=== PATIENT | female | born 1960 | race Caucasian/White ===

== ENCOUNTER 2017-01-15 00:20 | Emergency (ER) | payer BC ==
[~2017-01-15] VITALS: Ht 171.5 cm; Wt 85.7 kg
[~2017-01-15 00:20] MED LIST: NAPR1TAB9 PO; VENL150C PO
[2017-01-15 00:29] VITALS: BP 114/73; PULSE 78; TEMP 36.7; O2SAT 96; Ht 171.5 cm; Wt 85.7 kg
[2017-01-15] MEDS ORDERED: AMOX875T PO (00:53)
[2017-01-15] MEDS ORDERED: NORCO 5/325MG HOME PACK PO ONE (01:00)
[2017-01-15] MEDS ORDERED: AMOXICIL/CLAVU 875MG HOME PACK PO ONE (01:00)
[2017-01-15] MEDS ORDERED: DIPHTHERIA/TETANUS/PERTUSSIS 0.5 ML SYR/VIAL IM. ONE (01:00)
--- NOTE | 2017-01-15 01:02 | EMERGENCY ROOM VISIT NOTE ---
History First contact with patient: 00:33 Chief Complaint: BITE Stated Complaint: CAT BITE History of Present Illness The patient is a 56 year old female who presents to the Emergency Room with complaints of cat bite to her left forearm. The patient states the injury occurred about 3 or 4 hours ago. 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 She states one of the cats had kittens, and the kitten was trapped between a wall and a piece of aluminum siding. The patient went to remove the animal, when it turned, and bit her on the arm. The patient noted that the animal was injured and took it to a local staff air tactical officer. The animal is currently available for quarantine. The patient does not believe that she is up-to-date on her tetanus. She has not taken anything [id number] for pain. She did clean the wound with peroxide and use antibiotic ointment. Despite this she has had increasing swelling and tenderness. She rates her discomfort a 6/10. She does not report other injury. Review of Systems More than 10 systems were reviewed and otherwise negative with the exception of history of present illness. Past Medical/Surgical History Medical Problems: (1) Anxiety State Nos (2) Depressive Disorder Nec (3) Environmental allergies Surgical Problems: (1) H/O: hysterectomy (2) Hx of appendectomy Family History No pertinent family history Social History Smoking Status: Never Smoker Alcohol Use: occasionally Marital Status: Current/Historical Medications Scheduled Amoxicillin & Pot Clavulanate (Augmentin 875-125 mg), 1 TAB PO BID Naproxen (Aleve), 440 MG PO Q12 Venlafaxine Hcl (Effexor Xr), 300 MG PO DAILY Allergies Coded Allergies: Lidocaine (Unverified Allergy, Intermediate, HIVES, 01/15/17) Physical Exam Vital Signs Date Time Temp Pulse Resp B/P (MAP) Pulse Ox O2 Delivery O2 Flow Rate FiO2 01/15/17 00:29 36.7 78 20 114/73 96 Room Air Physical Exam VITALS: Vitals are noted on the nurse's note and reviewed by myself. Vital signs stable. GENERAL: Well-developed, well-nourished, white female, who is in no acute distress and resting comfortably. Patient is cooperative with the examination. HEAD: Normocephalic atraumatic. HEART: Regular rate and rhythm without murmurs gallops or rubs. LUNGS: Clear to auscultation bilaterally without wheezes, rales or rhonchi. No retractions or accessory muscle use. SKIN: The skin was with a small area along the anterior left forearm consistent with cat bite. This is without significant erythema or edema. No lymphangitic streaking. The patient has full sensation and range of motion of the left upper extremity throughout. There is no laceration for repair. Medical Decision & Procedures ED Course Physical exam and history were performed. Nursing notes, EMR, and Medication List were personally reviewed. Patient appears to have suffered a cat bite to her left forearm. The animal is currently at a staff air tactical officer and is available for quarantine. I discussed options of care with the patient, and we will defer rabies shots as the animal is available. The patient will be started on Augmentin. She will be given a home pack of Vicodin and an updated tetanus shot. The patient was asked to follow with her primary care physician with any ongoing or persistent symptoms. She was invited back to the emergency department with any new, worsening, or concerning complaints. She was pleased with plan of care. The chart was completed utilizing [employer] Speech Voice Recognition Software. Grammatical errors, random word insertions, pronoun errors, and incomplete sentences are an occasional consequence of this system due to software limitations, ambient noise, and hardware issues. Any formal questions or concerns about the content, text, or information contained within the body of this dictation should be directly addressed to the provider for clarification. . Medical Decision Differential diagnosis: Etiologies such as cat bite, rabies exposure, cellulitis, abscess, MRSA infection, DVT, necrotizing fasciitis, dermatitis, drug eruption, as well as others were entertained.. Impression Primary Impression: Cat bite of forearm Departure Information Dispostion Home / Self-Care Condition GOOD Prescriptions Amoxicillin & Pot Clavulanate (Augmentin 875-125 mg) 1 Tab Tab 1 TAB PO BID for 9 Days, #18 TAB Prov: Juan Jose Buckley PA-C 01/15/17 Forms HOME CARE DOCUMENTATION FORM, IMPORTANT VISIT INFORMATION Patient Instructions My [facility] Additional Instructions You were seen and evaluated today on an emergency basis only. This is not a substitute for, or an effort to provide, complete comprehensive medical care. It is not possible to recognize and treat all injuries or illnesses in a single emergency department visit. For this reason it is recommended that you followup with your primary care physician with any ongoing or persistent symptoms. Amoxicillin Clavulanate (Augmentin) 875mg: Take one pill twice daily for 10 total days for your infection. All antibiotics can cause diarrhea. If this occurs and you feel worse or it does not resolve in 1-2 days follow up with your doctor or return to the Emergency Department as this could be signs of serious underlying problems. Any medication can cause an allergic reaction, stop the pills immediately and return to the ER for rash, hives, breathing difficulties, or swelling. Mcintire (hydrocodone/acetaminophen) 5/325 mg (homepack) every 6 hours as needed for worsening breakthrough pain. Do not drink or drive on Mcint[place]. This medication will likely make you tired. Do not take Mcintire and Tylenol at the same time as both contain acetaminophen. Mcintire may cause constipation. You may wish to take an [id number] stool softener like Colace if this occurs. Quarantine the animal for 10 days. If the animal dies during this interval please return for rabies postexposure prophylaxis. You are welcome to return to the emergency department anytime with new, worsening, or concerning symptoms. Problem Qualifiers Primary Impression: Cat bite of forearm Encounter type: initial encounter Laterality: left Qualified Codes: S51.852A - Open bite of left forearm, initial encounter; W55.01XA - Bitten by cat, initial encounter
== END 2017-01-15 01:08 | disposition home or self-care (01) ==
LOC: C.EDB 00:21 → C.EDC 01:08
DX: S51.852A Open bite of left forearm, initial encounter (principal); W55.01XA Bitten by cat, initial encounter; F41.9 Anxiety disorder, unspecified; F32.9 Major depressive disorder, single episode, unspecified; Z23 Encounter for immunization

== ENCOUNTER 2017-01-15 11:00 | Emergency (ER) | payer BC ==
[~2017-01-15] VITALS: Ht 171.5 cm; Wt 85.5 kg
[~2017-01-15 11:00] MED LIST changes: +AMOX875T PO
[2017-01-15 11:03] VITALS: TEMP 36.9; Ht 171.5 cm; Wt 85.5 kg
[2017-01-15] MEDS ORDERED: RABIES VACCINE (IMOVAX) HUMAN DIPL CELL 2.5 INTER.UNIT/ML SYR IM. ONE (12:00)
[2017-01-15] MEDS ORDERED: RABIES IMMUNE GLOBULIN (HUMAN) 150 INTER.UNIT/ML 2 ML VIAL IM. ONE (12:00)
--- NOTE | 2017-01-15 12:19 | EMERGENCY ROOM VISIT NOTE ---
ED Visit Note First contact with patient: 11:21 CHIEF COMPLAINT: Referred to the emergency department by [facility] for rabies shots HISTORY OF PRESENT ILLNESS: Patient is a 56-year-old white female who returns to the emergency department as advised for post exposure rabies prophylaxis. She was seen here about 12 hours ago after she was bitten by a feral cat. The cat was stuck in some aluminum siding and appeared to be injured, and she removed the cat and in the process was bit on the left forearm. She was seen and appropriately evaluated here. Her tetanus was updated and she was placed on Augmentin. The cat was taken to a local production foreman for evaluation. Initially she planned to wait, as her understanding was the cat was going to be "weren't obtained. She was contacted by the Department of Health this morning however and it was recommended that she receive rabies prophylaxis. The patient does admit that it is not being clear what has happened to the animal since it arrived at the that. She cannot be sure that it has been appropriately quarantined. She otherwise denies any other complaints. She has never been previously vaccinated against rabies. REVIEW OF SYSTEMS: Review of systems as per HPI. All other systems reviewed were negative. At least 6 systems reviewed. PMH: Electronic medical records are reviewed and summarized as above/below. See Problem List. SOCIAL HISTORY: Patient lives at home. PHYSICAL EXAM: Vital Signs: Reviewed Nurse's notes. HEAD: Atraumatic, without temporal or scalp tenderness. EYES: PERRL, EOMI, no discharge or injection. SKIN: Patient has a very superficial puncture wounds noted on the volar aspect of the left forearm. No erythema or signs of infection.. NEUROLOGICAL: Alert and cooperative. Sensory and motor functions grossly intact. EMERGENCY DEPARTMENT COURSE: The patient was given immunoglobulin 1710 units, and Imovax IM. I did inject roughly 3 mL of immunoglobulin around the bite site on her left forearm. Patient was observed, had no reaction and then was discharged. She was given the remainder of the rabies post exposure prophylaxis schedule, and advised to return to the emergency department sooner for any problems or concerns. She will finish the Augmentin as prescribed. Medication reconciliation: I attest that I have personally reviewed the patient' s current medication list. Blood pressure screening: Patient was found to have a slightly elevated blood pressure due to circumstances. I do not believe that the patient requires hypertension monitoring. Problem List Medical Problems: (1) Acute headache Status: Resolved (2) Anxiety State Nos Status: Chronic (3) Depressive Disorder Nec Status: Chronic (4) Environmental allergies Status: Chronic (5) Left leg cellulitis Status: Resolved (6) Migraine Status: Resolved Surgical Problems: (1) H/O: hysterectomy Status: Resolved (2) Hx of appendectomy Status: Resolved Current/Historical Medications Scheduled Amoxicillin & Pot Clavulanate (Augmentin 875-125 mg), 1 TAB PO BID Naproxen (Aleve), 440 MG PO Q12 Venlafaxine Hcl (Effexor Xr), 300 MG PO DAILY Allergies Coded Allergies: Lidocaine (Unverified Allergy, Intermediate, HIVES, 01/15/17) Vital Signs Date Time Temp Pulse Resp B/P (MAP) Pulse Ox O2 Delivery O2 Flow Rate FiO2 01/15/17 13:06 65 18 142/86 100 01/15/17 11:03 36.9 75 16 120/79 96 Room Air Medications Administered Medications (Trade) Dose Ordered Sig/Daryl Route Start Time Stop Time Status Last Admin Dose Admin Rabies Immune Globulin (Imogam Rabies Inj) 1,710 interunit ONCE ONCE IM. 01/15/17 12:00 01/15/17 12:01 DC 01/15/17 12:23 1,710 INTERUNIT Rabies Vaccine Human Diploid Cell (Imovax Rabies) 2.5 interunit ONCE ONCE IM. 01/15/17 12:00 01/15/17 12:01 DC 01/15/17 12:22 2.5 INTERUNIT Departure Information Impression Primary Impression: Rabies, need for prophylactic vaccination against Referrals Bill Xavier M.D. (PCP) Patient Instructions My [facility] Additional Instructions Return to the emergency department on 01/18, 01/22 and 01/29 for the remainder of your rabies vaccinations, sooner for any problems or concerns. Take the Augmentin as prescribed.
[2017-01-15 13:06] VITALS: BP 142/86; PULSE 65; O2SAT 100
== END 2017-01-15 13:14 | disposition home or self-care (01) ==
LOC: C.EDB 11:01 → C.EDD 13:14
DX: Z20.3 Contact with and (suspected) exposure to rabies (principal); Z23 Encounter for immunization; W55.01XD Bitten by cat, subsequent encounter; F41.9 Anxiety disorder, unspecified; F32.9 Major depressive disorder, single episode, unspecified; Z90.710 Acquired absence of both cervix and uterus; Z79.899 Other long term (current) drug therapy

== ENCOUNTER 2017-01-18 17:47 | Emergency (ER) | payer BC ==
[~2017-01-18] VITALS: Ht 170.2 cm; Wt 86.0 kg
[~2017-01-18 17:47] MED LIST changes: -NAPR1TAB9 PO; -VENL150C PO
[2017-01-18 17:52] VITALS: TEMP 36.8; Ht 170.2 cm; Wt 86.0 kg
[2017-01-18 18:13] VITALS: BP 111/86; PULSE 88; O2SAT 96
[2017-01-18] MEDS ORDERED: RABIES VACCINE (IMOVAX) HUMAN DIPL CELL 2.5 INTER.UNIT/ML SYR IM. ONE (18:15)
--- NOTE | 2017-01-18 18:20 | EMERGENCY ROOM VISIT NOTE ---
ED Visit Note First contact with patient: 17:56 CHIEF COMPLAINT: Rabies prophylaxis HISTORY OF PRESENT ILLNESS: This 56-year-old female patient presents to the emergency department ambulatory for their second rabies vaccination. The patient has not had any complications from the previous injections. She does state that her arm became sore after the injection. The patient has been taking her Augmentin as prescribed and does state that it has caused some loose stools. She denies any other complaints. REVIEW OF SYSTEMS: A 6 system review of systems was completed with positives and pertinent negatives listed in the HPI. ALLERGIES: Lidocaine MEDICATIONS: Effexor PMH: Unchanged from previous visit. PHYSICAL EXAM: Vital Signs: Reviewed Nurse's notes, vital signs stable. GENERAL : This is a 56-year-old female, in no acute distress, well-developed, well- nourished. HEAD: Atraumatic, without temporal or scalp tenderness. EYES: PERRLA, EOMI, no discharge or injection. SKIN: Normal. NEUROLOGICAL: Alert and cooperative. Sensory and motor functions grossly intact. EMERGENCY DEPARTMENT COURSE: I examined the patient. The patient was given Imovax 2.5 units IM. The patient was observed for 20 minutes with no reaction. The patient was discharged home in stable condition. Medication reconciliation: I attest that I have personally reviewed the patient 's current medication list. Blood pressure screening: Patient was found to have normal blood pressure on screening and does not require follow-up. DIAGNOSIS: Rabies prophylaxis DISCHARGE INSTRUCTIONS: Continue vaccination schedule as directed. Return for any complications. Problem List Medical Problems: (1) Acute headache Status: Resolved (2) Anxiety State Nos Status: Chronic (3) Depressive Disorder Nec Status: Chronic (4) Environmental allergies Status: Chronic (5) Left leg cellulitis Status: Resolved (6) Migraine Status: Resolved Surgical Problems: (1) H/O: hysterectomy Status: Resolved (2) Hx of appendectomy Status: Resolved Current/Historical Medications Scheduled Amoxicillin & Pot Clavulanate (Augmentin 875-125 mg), 1 TAB PO BID Naproxen (Aleve), 440 MG PO Q12 Venlafaxine Hcl (Effexor Xr), 300 MG PO DAILY Allergies Coded Allergies: Lidocaine (Unverified Allergy, Intermediate, HIVES, 01/18/17) Vital Signs Date Time Temp Pulse Resp B/P (MAP) Pulse Ox O2 Delivery O2 Flow Rate FiO2 01/18/17 18:13 88 16 111/86 96 Room Air 01/18/17 17:52 36.8 88 18 112/67 97 Room Air Medications Administered Medications (Trade) Dose Ordered Sig/Daryl Route Start Time Stop Time Status Last Admin Dose Admin Rabies Vaccine Human Diploid Cell (Imovax Rabies) 2.5 interunit ONCE ONCE IM. 01/18/17 18:15 01/18/17 18:16 DC 01/18/17 18:15 2.5 INTERUNIT Departure Information Impression Primary Impression: Rabies, need for prophylactic vaccination against Dispostion Home / Self-Care Condition GOOD Referrals Bill Xavier M.D. (PCP) Patient Instructions My [facility] Additional Instructions Continue vaccination schedule as directed. Return for any complications.
[2017-01-22] MEDS ORDERED: VENL150C PO (12:30)
== END 2017-01-18 18:32 | disposition home or self-care (01) ==
LOC: C.EDB 17:47 → C.EDD 18:32
DX: Z23 Encounter for immunization (principal); Z20.3 Contact with and (suspected) exposure to rabies; F41.1 Generalized anxiety disorder; F32.9 Major depressive disorder, single episode, unspecified; Z90.710 Acquired absence of both cervix and uterus; Z90.89 Acquired absence of other organs; Z79.899 Other long term (current) drug therapy

== ENCOUNTER 2017-01-22 18:41 | Emergency (ER) | payer BC ==
[~2017-01-22] VITALS: Ht 170.2 cm; Wt 84.6 kg
[~2017-01-22 18:41] MED LIST changes: +VENL150C PO
[2017-01-22 18:50] VITALS: TEMP 36.8; Ht 170.2 cm; Wt 84.6 kg
--- NOTE | 2017-01-22 19:06 | EMERGENCY ROOM VISIT NOTE ---
ED Visit Note First contact with patient: 18:55 CHIEF COMPLAINT: Rabies prophylaxis HISTORY OF PRESENT ILLNESS: This 56-year-old female patient presents to the emergency department for their third rabies shot. The patient has not had any complications from the previous injections. They deny any other complaints. REVIEW OF SYSTEMS: A 6 system review of systems was completed with positives and pertinent negatives listed in the HPI. ALLERGIES: See chart MEDICATIONS: See chart PMH: Unchanged from previous visit. PHYSICAL EXAM: Vital Signs: Reviewed Nurse's notes, vital signs stable. GENERAL : Pleasant and cooperative, in no acute distress, well-developed, well- nourished. HEAD: Atraumatic, without temporal or scalp tenderness. EYES: PERRLA, EOMI, no discharge or injection. SKIN: Normal. NEUROLOGICAL: Alert and cooperative. Sensory and motor functions grossly intact. EMERGENCY DEPARTMENT COURSE: I examined the patient. The patient was given Imovax 1ml IM. The patient was observed for 20 minutes with no reaction. The patient was discharged home in stable condition. Problem List Medical Problems: (1) Acute headache Status: Resolved (2) Anxiety State Nos Status: Chronic (3) Depressive Disorder Nec Status: Chronic (4) Environmental allergies Status: Chronic (5) Left leg cellulitis Status: Resolved (6) Migraine Status: Resolved Surgical Problems: (1) H/O: hysterectomy Status: Resolved (2) Hx of appendectomy Status: Resolved Current/Historical Medications Scheduled Amoxicillin & Pot Clavulanate (Augmentin 875-125 mg), 1 TAB PO BID Venlafaxine Hcl (Effexor Xr), 300 MG PO DAILY Scheduled PRN Naproxen (Aleve), 440 MG PO Q12 PRN for Pain Allergies Coded Allergies: Lidocaine (Unverified Allergy, Intermediate, HIVES, 01/18/17) Vital Signs Date Time Temp Pulse Resp B/P (MAP) Pulse Ox O2 Delivery O2 Flow Rate FiO2 01/22/17 18:50 36.8 71 18 103/67 94 Room Air Medications Administered Medications (Trade) Dose Ordered Sig/Daryl Route Start Time Stop Time Status Last Admin Dose Admin Rabies Vaccine Human Diploid Cell (Imovax Rabies) 2.5 interunit ONCE ONCE IM. 01/22/17 19:15 01/22/17 19:16 DC 01/22/17 19:28 2.5 INTERUNIT Departure Information Impression Primary Impression: Encounter for repeat administration of rabies vaccination Dispostion Home / Self-Care Condition GOOD Referrals Bill Xavier M.D. (PCP) Patient Instructions My [facility] Additional Instructions Continue vaccination schedule as directed. Return for any complications.
[2017-01-22] MEDS ORDERED: RABIES VACCINE (IMOVAX) HUMAN DIPL CELL 2.5 INTER.UNIT/ML SYR IM. ONE (19:15)
[2017-01-22] MEDS ORDERED: NAPR1TAB9 PO (19:37)
[2017-01-22 19:47] VITALS: BP 103/67; PULSE 71; O2SAT 96
== END 2017-01-22 19:45 | disposition home or self-care (01) ==
LOC: C.EDB 18:42 → C.EDD 19:45
DX: Z23 Encounter for immunization (principal); Z20.3 Contact with and (suspected) exposure to rabies

== ENCOUNTER 2017-01-29 17:20 | Emergency (ER) | payer BC ==
[~2017-01-29] VITALS: Ht 171.5 cm; Wt 86.3 kg
[~2017-01-29 17:20] MED LIST changes: -AMOX875T PO; +NAPR1TAB9 PO
[2017-01-29 17:22] VITALS: BP 129/74; PULSE 84; TEMP 36.8; O2SAT 97; Ht 171.5 cm; Wt 86.3 kg
[2017-01-29] MEDS ORDERED: RABIES VACCINE (IMOVAX) HUMAN DIPL CELL 2.5 INTER.UNIT/ML SYR IM. ONE (17:30)
--- NOTE | 2017-01-29 17:42 | EMERGENCY ROOM VISIT NOTE ---
History First contact with patient: 17:27 Chief Complaint: RABIES VACCINE Stated Complaint: LAST RABIE SHOT History of Present Illness The patient is a 56 year old female who presents to the Emergency Room for her fourth and final Imovax immunization. The patient was here 2 weeks ago after being bitten by a feral cat. The patient completed her Augmentin antibiotics, and reports that the injury is barely noticeable. She denies any adverse reactions from her immunizations. Review of Systems 6 system review was performed and was negative except for pertinent positives and negatives as indicated in history of present illness Past Medical/Surgical History Medical Problems: (1) Acute headache (2) Anxiety State Nos (3) Depressive Disorder Nec (4) Environmental allergies (5) Left leg cellulitis (6) Migraine Surgical Problems: (1) H/O: hysterectomy (2) Hx of appendectomy Family History Unremarkable Social History Smoking Status: Never Smoker Alcohol Use: occasionally Marital Status: Occupation Status: employed Current/Historical Medications Scheduled Venlafaxine Hcl (Effexor Xr), 300 MG PO DAILY Scheduled PRN Naproxen (Aleve), 440 MG PO Q12 PRN for Pain Allergies Coded Allergies: Lidocaine (Unverified Allergy, Intermediate, HIVES, 01/29/17) Physical Exam Vital Signs Date Time Temp Pulse Resp B/P (MAP) Pulse Ox O2 Delivery O2 Flow Rate FiO2 01/29/17 17:22 36.8 84 16 129/74 97 Room Air Physical Exam CONSTITUTIONAL: Healthy and well nourished. HEENT: No scleral icterus noted. MUSCULOSKELETAL: Examination of the left dorsal forearm does not show any residual significant wound, erythema or induration. INTEGUMENTARY: No rash or other significant dermatologic conditions noted. NEUROLOGIC: Left hand and fingers are sensory intact. Medical Decision & Procedures Medications Administered Medications (Trade) Dose Ordered Sig/Daryl Route Start Time Stop Time Status Last Admin Dose Admin Rabies Vaccine Human Diploid Cell (Imovax Rabies) 2.5 interunit ONCE ONCE IM. 01/29/17 17:30 01/29/17 17:31 DC 01/29/17 17:35 2.5 INTERUNIT ED Course The patient was administered Imovax IM without adverse reaction. She was advised that if she has any future potential exposure to rabies that she should advise her healthcare provider that she has undergone this immunization series. The patient was happy with plan of care, and denied any pain at the time of discharge. Medical Decision Impression Primary Impression: Rabies, need for prophylactic vaccination against Additional Impression: Cat bite of left forearm Departure Information Referrals Bill Xavier M.D. (PCP) Patient Instructions My [facility] Problem Qualifiers Additional Impression: Cat bite of left forearm Encounter type: subsequent encounter Qualified Codes: S51.852D - Open bite of left forearm, subsequent encounter; W55.01XD - Bitten by cat, subsequent encounter
== END 2017-01-29 17:50 | disposition home or self-care (01) ==
LOC: C.EDB 17:21 → C.EDD 17:50
DX: Z20.3 Contact with and (suspected) exposure to rabies (principal); S51.852D Open bite of left forearm, subsequent encounter; W55.01XD Bitten by cat, subsequent encounter; Z23 Encounter for immunization

== ENCOUNTER 2017-07-28 21:13 | Emergency (ER) | payer BC ==
[~2017-07-28] VITALS: Ht 170.2 cm; Wt 83.9 kg
[2017-07-28 21:24] VITALS: TEMP 36.3; Ht 170.2 cm; Wt 83.9 kg
[2017-07-28] MEDS ORDERED: AZIT-57 PO (21:55)
[2017-07-28] MEDS ORDERED: ACET-1256 PO (21:57)
[2017-07-28] MEDS ORDERED: ONDANSETRON INJ 2 MG/ML 2 ML VIAL IV STA (22:08)
[2017-07-28] MEDS ORDERED: KETOROLAC TROMETHAMINE 30 MG/ML VIAL IV STA (22:08)
[2017-07-28 22:15] VITALS: O2SAT 96
[2017-07-28] MEDS ORDERED: ALBUT/IPRATROP 3MG/0.5MG NEB 3 ML VIAL INH ONE (22:15)
--- NOTE | 2017-07-28 22:28 | EMERGENCY ROOM VISIT NOTE ---
History Report prepared by Margarita: Cristiane Spence Under the Supervision of: Dr. Prabhu Juarez M.D. First contact with patient: 21:53 Chief Complaint: FEVER Stated Complaint: FEVER,CHILLS,HARD BREATHING,GTZ History of Present Illness The patient is a 57 year old female who presents to the Emergency Room with complaints of persistent fevers that began one month ago. The patient states that one month she was diagnosed with pneumonia, noting she was given Z-frannie. She notes she has been nauseous, vomiting, has chills, and a headache she describes as "the worst headache ever". The patient states that her symptoms keep worsening. She notes she took Tylenol at 0800, which did not relieve her symptoms. Source of History: patient Onset: one month ago Position: other (global) Quality: other Timing: other (persistent) Associated Symptoms: + chills, + headache, + nausea, + vomiting Review of Systems See HPI for pertinent positives & negatives. A total of 10 systems reviewed and were otherwise negative. Past Medical & Surgical Medical Problems: (1) Acute headache (2) Anxiety State Nos (3) Depressive Disorder Nec (4) Environmental allergies (5) Left leg cellulitis (6) Migraine Surgical Problems: (1) H/O: hysterectomy (2) Hx of appendectomy Social History Smoking Status: Never Smoker Alcohol Use: occasionally Marital Status: Occupation Status: employed Current/Historical Medications Scheduled Azithromycin (Azithromycin), 1 DOSE PO UD Ondasetron Odt (Zofran Odt), 4 MG SL Q6H Venlafaxine Hcl (Effexor Xr), 300 MG PO DAILY Scheduled PRN Acetaminophen (Tylenol), 1,000 MG PO DAILY PRN for Pain or Fever Naproxen (Aleve), 440 MG PO Q12 PRN for Pain Allergies Coded Allergies: Lidocaine (Unverified Allergy, Intermediate, HIVES, 07/28/17) Physical Exam Vital Signs Date Time Temp Pulse Resp B/P (MAP) Pulse Ox O2 Delivery O2 Flow Rate FiO2 07/29/17 00:49 62 16 101/61 96 07/28/17 23:09 62 16 120/77 93 Room Air 8.0 07/28/17 22:36 61 16 93 Room Air 07/28/17 22:22 67 07/28/17 22:15 96 Room Air 07/28/17 21:24 36.3 79 20 146/81 98 Room Air Physical Exam GENERAL: Patient is a healthy-appearing well-nourished female, hyperventilating on exam HEAD: Normocephalic atraumatic EYES: Ocular movements intact pupils equal and react to light OROPHARYNX mucous membranes are moist no exudates present no erythema or edema present NECK: Supple no nuchal rigidity CHEST: Good equal expansion LUNGS: Clear and equal to auscultation CARDIAC: Normal S1 and S2 ABDOMEN: Soft nontender no guarding BACK: No CVA tenderness EXTREMITIES: No pain upon palpation normal muscle strength in all groups no clubbing cyanosis or edema NEURO: No evidence of meningitis or cephalitis. Patient is following commands and answering questions appropriately. Alert and oriented x3 Cranial Nerves 2- 12 grossly intact Medical Decision & Procedures ER Provider Diagnostic Interpretation: Radiology results as stated below per my review and radiologist interpretation: CT HEAD: Comparison: 08/20/2013 No evidence of acute infarct, hemorrhage, mass or edema. No acute calvarial abnormality. Sinuses are grossly patent. Radiologist: Julio Torres MD Study ready at 23:34 and initial results transmitted at 23:40. Laboratory Results 07/28/17 22:25 Red Blood Count 3.84, Mean Corpuscular Volume 92.7, Mean Corpuscular Hemoglobin 32.6, Mean Corpuscular Hemoglobin Concent 35.1, Mean Platelet Volume 10.2, Neutrophils (%) (Auto) 34.1, Lymphocytes (%) (Auto) 50.9, Monocytes (%) (Auto) 7.5, Eosinophils (%) (Auto) 6.5, Basophils (%) (Auto) 0.8, Neutrophils # (Auto) 1.68, Lymphocytes # (Auto) 2.51, Monocytes # (Auto) 0.37, Eosinophils # (Auto) 0.32, Basophils # (Auto) 0.04 07/28/17 22:25 Test 07/28/17 22:00 07/28/17 22:25 07/28/17 23:15 Influenza Type A Antigen Neg for Influ A (NEG) Influenza Type B Antigen Neg for Influ B (NEG) White Blood Count 4.93 K/uL (4.8-10.8) Red Blood Count 3.84 M/uL (4.2-5.4) Hemoglobin 12.5 g/dL (12.0-16.0) Hematocrit 35.6 % (37-47) Mean Corpuscular Volume 92.7 fL (80-100) Mean Corpuscular Hemoglobin 32.6 pg (25-34) Mean Corpuscular Hemoglobin Concent 35.1 g/dl (32-36) Platelet Count 252 K/uL (130-400) Mean Platelet Volume 10.2 fL (7.4-10.4) Neutrophils (%) (Auto) 34.1 % Lymphocytes (%) (Auto) 50.9 % Monocytes (%) (Auto) 7.5 % Eosinophils (%) (Auto) 6.5 % Basophils (%) (Auto) 0.8 % Neutrophils # (Auto) 1.68 K/uL (1.4-6.5) Lymphocytes # (Auto) 2.51 K/uL (1.2-3.4) Monocytes # (Auto) 0.37 K/uL (0.11-0.59) Eosinophils # (Auto) 0.32 K/uL (0-0.5) Basophils # (Auto) 0.04 K/uL (0-0.2) RDW Standard Deviation 43.1 fL (36.4-46.3) RDW Coefficient of Variation 12.7 % (11.5-14.5) Immature Granulocyte % (Auto) 0.2 % Immature Granulocyte # (Auto) 0.01 K/uL (0.00-0.02) Anion Gap 5.0 mmol/L (3-11) Est Creatinine Clear Calc Drug Dose 91.0 ml/min Estimated GFR () 101.8 Estimated GFR (Non- 87.9 BUN/Creatinine Ratio 19.9 (10-20) Calcium Level 8.8 mg/dl (8.5-10.1) Total Bilirubin 0.1 mg/dl (0.2-1) Direct Bilirubin < 0.1 mg/dl (0-0.2) Aspartate Amino Transf (AST/SGOT) 22 U/L (15-37) Alanine Aminotransferase (ALT/SGPT) 23 U/L (12-78) Alkaline Phosphatase 61 U/L (45-117) Total Creatine Kinase 69 U/L (26-192) Creatine Kinase MB 0.7 ng/ml (0.5-3.6) Creatine Kinase MB Ratio 1.0 (0-3.0) Troponin I < 0.015 ng/ml (0-0.045) Total Protein 6.8 gm/dl (6.4-8.2) Albumin 3.2 gm/dl (3.4-5.0) Lyme Disease IgG Antibody NEG (NEG) Lyme Disease IgM Antibody NEG (NEG) Monoscreen NEG (NEG) Labs reviewed by ED physician. Medications Administered Medications (Trade) Dose Ordered Sig/Drayl Route Start Time Stop Time Status Last Admin Dose Admin Albuterol/ Ipratropium (Duoneb) 12 ml ONE ONCE INH 07/28/17 22:15 07/28/17 22:16 DC 07/28/17 22:36 12 ML Ketorolac Tromethamine (Toradol Inj) 30 mg NOW STAT IV 07/28/17 22:08 07/28/17 22:11 DC 07/28/17 22:15 30 MG Ondansetron HCl (Zofran Inj) 4 mg NOW STAT IV 07/28/17 22:08 07/28/17 22:11 DC 07/28/17 22:15 4 MG Acetaminophen (Tylenol Tab) 1,000 mg NOW STAT PO 07/28/17 23:33 07/28/17 23:34 DC 07/28/17 23:39 1,000 MG Potassium Chloride (Marianne Ciel Elix) 40 meq NOW STAT PO 07/28/17 23:33 07/28/17 23:34 DC 07/28/17 23:39 40 MEQ Promethazine HCl 25 mg/Sodium Chloride 51 ml @ 204 mls/hr NOW STAT IV 07/28/17 23:55 07/29/17 00:09 DC 07/29/17 00:05 204 MLS/HR Lorazepam (Ativan Inj) 0.5 mg NOW STAT IV 07/28/17 23:55 07/28/17 23:57 DC 07/29/17 00:05 0.5 MG ED Course 2201: Past medical records reviewed. The patient was evaluated in room C2. A complete history and physical examination was performed. 8: Ordered Zofran Inj 4mg IV and Toradol Inj 30mg IV. 2215: Ordered Duoneb 12ml INH. 2333: Ordered Potassium Chloride 40meq PO and Tylenol Tab 1000mg PO. 2355: Ordered Lorazepam 0.5mg IV and Promethazine HCL 25mg/ Sodium Chloride 51ml @ 204 mls/hr IV. 2413: I reevaluated the patient, who states she has a headache. The patient refuses LP. Medical Decision Differential diagnosis: Etiologies such as viral syndrome, otitis, pharyngitis, pneumonia, influenza, meningitis, urinary tract infection, sepsis, bacteremia, as well as others were entertained. Medication Reconcilliation Current Medication List: was personally reviewed by me Blood Pressure Screening Patient's blood pressure: Normal blood pressure Impression Primary Impression: Hyperventilation Scribe Attestation The scribe's documentation has been prepared under my direction and personally reviewed by me in its entirety. I confirm that the note above accurately reflects all work, treatment, procedures, and medical decision making performed by me. Departure Information Dispostion Home / Self-Care Prescriptions Ondasetron Odt (ZOFRAN ODT) 4 Mg Tab 4 MG SL Q6H for Nausea, #6 TAB Prov: Prabhu Juarez MD 07/29/17 Referrals Bill Xavier M.D. (PCP) Forms HOME CARE DOCUMENTATION FORM, IMPORTANT VISIT INFORMATION Patient Instructions My [facility]
--- NOTE | 2017-07-28 22:30 | DIAGNOSTIC IMAGING REPORT ---
SINGLE VIEW CHEST CLINICAL HISTORY: Dyspnea. FINDINGS: An AP, portable, upright chest radiograph is compared to chest x-ray and chest CT dated 04/23/2010. The cardiomediastinal silhouette is unremarkable. Bibasilar airspace opacities likely represent atelectasis. No large pleural effusion or pneumothorax is seen. The skeletal structures are osteopenic. The bony thorax is grossly intact. IMPRESSION: Bibasilar airspace opacities likely represent atelectasis. Clinical correlation will be required. The lungs are otherwise clear. Electronically signed by: Yvan Carmichael M.D. 07/28/2017 10:29 PM Dictated Date/Time: 07/28/2017 10:28 PM
[2017-07-28 22:32] LABS: INFLUENZA B ANTIGEN Neg for Influ B (NEG)
[2017-07-28 22:36] VITALS: PULSE 61; O2SAT 93
[2017-07-28 22:38] LABS: HEMATOCRIT 35.6 % (37-47); HEMOGLOBIN 12.5 g/dL (12.0-16.0); MEAN CELL VOLUME 92.7 fL (80-100); MEAN CORPUSCULAR HEMOGLOBIN 32.6 pg (25-34); MEAN CORPUSCULAR HGB CONC 35.1 g/dl (32-36); MEAN PLATELET VOLUME 10.2 fL (7.4-10.4); PLATELET COUNT 252 K/uL (130-400); RED CELL DISTRIBUTION WIDTH CV 12.7 % (11.5-14.5); RED CELL DISTRIBUTION WIDTH SD 43.1 fL (36.4-46.3); WHITE BLOOD COUNT 4.93 K/uL (4.8-10.8)
[2017-07-28 22:57] LABS: ALBUMIN 3.2 gm/dl (3.4-5.0); ALT/SGPT 23 U/L (12-78); BLOOD UREA NITROGEN 15 mg/dl (7-18); CALCIUM 8.8 mg/dl (8.5-10.1); CARBON DIOXIDE 27 mmol/L (21-32); CREATININE 0.75 mg/dl (0.60-1.20); GLUCOSE 103 mg/dl (70-99); POTASSIUM 3.5 mmol/L (3.5-5.1); SODIUM 139 mmol/L (136-145)
[2017-07-28 23:00] LABS: MONOSPOT NEG (NEG)
[2017-07-28 23:02] LABS: ALKALINE PHOSPHATASE 61 U/L (45-117); AST/SGOT 22 U/L (15-37); CKMB 0.7 ng/ml (0.5-3.6); TOTAL PROTEIN 6.8 gm/dl (6.4-8.2)
[2017-07-28] MEDS ORDERED: POTASSIUM CHLORIDE 20 MEQ/15 ML UDC PO STA (23:33)
[2017-07-28] MEDS ORDERED: ACETAMINOPHEN 500 MG TAB PO STA (23:33)
[2017-07-28 23:43] LABS: BASO % 0.8 %; BASO ABS # 0.04 K/uL (0-0.2); EOS % 6.5 %; EOS ABS # 0.32 K/uL (0-0.5); IG# 0.01 K/uL (0.00-0.02); LYMPH % 50.9 %; LYMPH ABS # 2.51 K/uL (1.2-3.4); MONO % 7.5 %; MONO ABS # 0.37 K/uL (0.11-0.59); NEUT % 34.1 %; NEUT ABS # 1.68 K/uL (1.4-6.5)
[2017-07-28] MEDS ORDERED: PROMETHAZINE HCL INJ 25 MG in SODIUM CHLORIDE 0.9% 50ML 50 ML IV STA (23:55)
[2017-07-28] MEDS ORDERED: LORAZEPAM 2 MG/ML 1 ML VIAL IV STA (23:55)
[2017-07-29] MEDS ORDERED: ONDA4TAB10 SL (00:41)
[2017-07-29 00:49] VITALS: BP 101/61; PULSE 62; O2SAT 96
--- NOTE | 2017-07-29 07:11 | DIAGNOSTIC IMAGING REPORT ---
HEAD CT NONCONTRAST CT DOSE: 614.27 mGy.cm HISTORY: Pt c/o headache TECHNIQUE: Multiaxial CT images of the head were performed without the use of intravenous contrast. Automated exposure control was utilized for this study. A dose lowering technique was utilized adhering to the principles of ALARA. Comparison: Head CT 08/20/2013. Findings: The paranasal sinuses and mastoid air cells are clear. The calvarium and skull base are intact. The ventricles and sulci are within normal limits. There is no mass, hematoma, midline shift, or acute infarct. Impression: No acute intracranial abnormality. Electronically signed by: [place] M.D. 07/29/2017 7:10 AM Dictated Date/Time: 07/29/2017 7:05 AM
== END 2017-07-29 00:51 | disposition home or self-care (01) ==
LOC: C.EDB 21:14 → C.EDC 07-29 00:51
DX: R06.4 Hyperventilation (principal); F41.9 Anxiety disorder, unspecified; F32.9 Major depressive disorder, single episode, unspecified; Z90.710 Acquired absence of both cervix and uterus

== ENCOUNTER 2020-10-09 11:53 | Inpatient (IN) ==
--- NOTE | 2020-10-09 12:54 | Gastrointestinal Consultation ---
Date of Consultation October 09, 2020 Assessment & Plan (1) Abdominal pain: (2) Rectal bleeding: Pt is a 60 y/o female w hx of Factor V Leiden Mutation on Xarelto, seen for worsening rectal bleeding associated w mid abd discomfort, and weakness. - Repeat labs: CBC, CMP, PT/INR - Obtain CT abd/pelvis w contrast to r/o ischemic colitis, diverticular bleeding - CL diet today but keep NPO after midnight - Hold Xarelto - Monitor blood ct and transfuse prn - If CBC showed worsening anemia or acute/concerning findings on CT scan then would plan inpt colonoscopy. Otherwise if unremarkable studies & if no acute events overnight she may be able to be discharged tomorrow to f/u w originally planned outpt colonoscopy on 10/17/2020 Supervising Physician Co-Signing Physician Notes I have seen and discussed the management with THELMA Schaefer. No acute complaints in er - no active hematochezia while in the er today. PE obese female in nad, abd soft nt nd Labs pending Agree with further plan of care as per Nahomi's assessment and plan. History of Present Illness Reason for Consultation: Rectal bleeding Requesting Physician: Emergency Department Attending Physician: Dr. Hayley Alva History of Present Illness Pt is a 60 y/o female who presented w rectal bleeding since last week. She has PMHx of ? stomach ulcer as a child, asthma, anxiety, cellulitis, Factor V Leiden mutation on Xarelto (last dose was 10/08). She noticed rectal bleeding with BM in AM and PM. However recently noticed even without BM she would have rectal bleeding associated with mid abd discomfort and light headedness, weakness. She denies fever, chills, n/v, sick contact, new meds including recent antibx. She went to her PCP last week for this issue and had an in office anoscopy - told she had ? abrasion in rectum. She had some hemorrhoids but none was bleeding. Denies NSAIDs, tobacco, ETOH Denies family hx of colorectal ca, IBD. GI workup: Colonoscopy 2008 - Protrudant appendix likely represent a stump. This was biopsied. Doubt carcinoid. Internal hemorrhoids. Moderate diverticulosis in the left colon Lower EUS 2008 - fatty tissue of stump Colonic mucosa with benign lymphoid aggregates and no significant histopathological changes. Colonoscopy 2010 - Hemorrhoids. Appendiceal stump. Fair prep Allergies Allergy/AdvReac Type Severity Reaction Status Date / Time lidocaine Allergy Intermediate HIVES Unverified 04/24/19 09:55 Home Medications Medication Instructions Recorded Confirmed Type ondansetron 4 mg PO Q8H PRN 04/24/19 04/24/19 History venlafaxine [Effexor XR] 300 mg PO QAM 04/24/19 04/24/19 History Patient History Medical History (Updated 10/09/20 @ 12:59 by THELMA Sandhu) Migraines Surgical History No significant past surgical history Social History Smoking Status: Never smoker marital status: Current Living Situation: Spouse current occupational status: employed Feels Safe at Home: Yes Review of Systems Review of Systems: All systems reviewed & are unremarkable except as noted in HPI & below Physical Exam Constitutional: WD/WN, vitals as above well groomed, cooperative and comfortable Eyes: PERRL, conjunctivae normal, anicteric sclerae ENMT: external ear and nose normal, oropharynx normal Respiratory: normal respiratory effort, lungs clear to auscultation Cardiovascular: RRR, no murmur, no edema Gastrointestinal (Abdomen): normal bowel sounds, soft, nontender, no hepatosplenomegaly Rectal - external hemorrhoids, non thrombosed. Internal exam w/o masses felt, no signs of blood in rectal vault area Skin: no rashes, warm and dry no jaundice Psychiatric: A+Ox3, euthymic affect Lymphatic: no lymphedema Results & Data ([facility]) Vital Signs (Past 12 Hours) Vital Signs Temp Pulse Resp BP Pulse Ox 10/09/20 12:04 36.7 C 78 18 139/74 97
--- NOTE | 2020-10-09 13:16 | Emergency Department Note ---
Impression & Plan Lower gastrointestinal hemorrhage ED Provider Note INFORMANT: Patient ED PROVIDER(S): Lisandro Braden MD CHIEF COMPLAINT: GI bleed PLAN: Disposition: Admitted Condition: Good Outpatient prescription management: none Referral: None MEDICAL DECISION MAKING: Patient presented to emergency department because of rectal bleeding. She is anticoagulated. She was evaluated by gastroenterology. CT scan, Covid testing, and blood work were ordered. CT scan was negative. Consultation was made with the hospitalist service for [facility]. The patient was evaluated in ER admitted for further management. Triage Nursing notes reviewed and agree them. Additional history obtained from family Vital Signs: reviewed and remarkable for no significant abnormalities Differential diagnosis: Diverticulosis, AVM, coagulopathy, colitis, inflammatory bowel disease, malignancy, Kaylen-Joshi tear, esophagitis, peptic ulcer disease, variceal bleed, gastritis, epistaxis, fissure, hemorrhoids, as well as other pathologies. Diagnostics interpreted by me: ECG: none Cardiac Monitoring: Cardiac monitoring ordered by me: The patient was placed on continuous cardiac monitoring and observed. It revealed a normal sinus rhythm at 73 beats per minute without ectopy or evidence of dysrhythmia. Imaging studies: CT scan abdomen pelvis was negative. I refer you to the EMR for further details Consultation(s): Discussed with [facility] hospitalist service HPI: The patient is a 60 year old female who presents to the Emergency Room with complaints of rectal bleeding. This started few days ago and is worsening. The patient notes for starting with blood during bowel movements but then has had rectal bleeding in between bowel movements. The patient also notes the following associated symptoms, mid abdominal pain. The patient has found no relieving factors. Current pain is rated as 2/10. Patient was in contact with [facility] Nahomi [employer]. She was seen and admission was recommended for work-up including CT scan and possible colonoscopy. Labs and CT scan were ordered by GI. She is anticoagulated and GI recommended holding her Xarelto. O n GI examination the patient had nonbleeding external hemorrhoids. No active hemorrhage was noted. Patient notes after rectal examination she did have a moderate amount of rectal bleeding consistent with her other episodes. Pt denies LOC, headache, fevers, chills, diaphoresis, visual changes, neck pain, chest pain, breathing difficulties, nausea, vomiting, back pain, melena, urinary symptoms, numbness, weakness, lymphadenopathy, rash, or other complaints. ROS: See above HPI for pertinent positives & negatives. A total of 10 systems reviewed and were otherwise negative. PAST MEDICAL HISTORY:See Below , anticoagulated PAST SURGICAL HISTORY:See Below, FAMILY HISTORY:See Below SOCIAL HISTORY:See Below, non-smoker HOME MEDICATIONS:See Below ALLERGIES:See Below VITALS:See Below PHYSICAL EXAMINATION: GENERAL: Awake, alert, well-appearing, in no distress HENT: Normocephalic, atraumatic. Oropharynx unremarkable. EYES: Normal conjunctiva. Sclera non-icteric. NECK: Inspection normal. Non-tender. Supple. No nuchal rigidity. FROM. No masses. RESPIRATORY: Clear to auscultation. No wheezes. No rales. Normal respiratory effort. CARDIAC: Normal rate. Normal rhythm. No murmurs. No rubs. Extremities warm and well perfused. Pulses equal. No JVD. GI: Soft, non-distended. Mid abdominal tenderness to palpation. No rebound or guarding. No masses. RECTAL: Deferred. MUSCULOSKELETAL: Atraumatic. Chest examination reveals no tenderness. The back is symmetrical on inspection without obvious abnormality. There is no CVA tenderness to palpation. No joint edema. LOWER EXTREMITIES: Calves are equal size bilaterally and non-tender. No edema. No discoloration. NEURO: Normal sensorium. No sensory or motor deficits noted. SKIN: No rash or jaundice noted. Lisandro Braden MD Past Med/Surg History Medical History Anxiety Asthma Factor V Leiden History of DVT of lower extremity Migraines Surgical History History of appendectomy History of hysterectomy Family History Father Lung cancer Heart disease Daughter Asthma Social History Smoking Status: Never smoker Second Hand Exposure: No; Do You Dip or Chew Tobacco: No; Tobacco Cessation Education Requested by Patient: No Hx Alcohol Use: No Hx Substance Use: No Preferred Language: Israeli Communication Ability: Effective Pediatric Oncology Nurse Required: No Beliefs That Will Affect Care: None marital status: Current Living Situation: Spouse current occupational status: employed Other Information That Helps Us Care for You: No Feels Safe at Home: Yes Safety Concerns: Feels Safe At This Time Assistive Devices: Glasses Allergies Allergies Allergy/AdvReac Type Severity Reaction Status Date / Time lidocaine Allergy Intermediate HIVES Unverified 10/09/20 13:46 bee venom protein (honey bee) Allergy Hives Unverified 10/09/20 13:46 tuberculin, purified protein Allergy Hives Unverified 10/09/20 13:49 deriva Home Meds Home Medications Medication Instructions Recorded Confirmed albuterol sulfate 2 inh INHALATION Q4H PRN 10/09/20 10/09/20 buspirone 10 mg PO BID 10/09/20 10/09/20 cyanocobalamin-cobamamide [B12] 1 jonathan SUBLINGUAL DAILY 10/09/20 10/09/20 ergocalciferol (vitamin D2) 10 mcg PO DAILY 10/09/20 10/09/20 [Vitamin D2] lactobacillus combination no.4 3,000 mmu cells PO DAILY 10/09/20 10/09/20 [Probiotic] omega 4-idt-lmj-fish oil [Fish Oil] 1 cap PO DAILY 10/09/20 10/09/20 rivaroxaban [Xarelto] 10 mg PO HS 10/09/20 10/09/20 sumatriptan succinate 50 mg PO DIRECTED PRN 10/09/20 10/09/20 venlafaxine [Effexor XR] 150 mg PO DAILY 10/09/20 10/09/20 zinc oxide-zinc citrate 50 mg PO DAILY 10/09/20 10/09/20 Results & Data (ED) Vital Signs Vital Signs - 24 hr 10/09/20 12:04 10/09/20 13:54 Temperature 36.7 C Temperature Source Temporal Artery Scan Pulse Rate 78 Respiratory Rate 18 Blood Pressure 139/74 Blood Pressure [Right Arm] 139/74 Blood Pressure Mean 95 Blood Pressure Mean [Right Arm] 95 Pulse Oximetry 97 Oxygen Delivery Method Room Air Sepsis Recent Fever Within 48 Hours No Sepsis New/Unexplained Change in Mental Status No Sepsis Action Taken by Nursing No Action Required Laboratory Data Result diagrams: 10/09/20 17:21 10/09/20 13:04 Lab Results 0410/09/20 10/09/20 Range/Units 13:04 13:04 13:04 WBC 4.64 L (4.8-10.8) K/uL RBC 3.86 L (4.2-5.4) M/uL Hgb 12.1 (12.0-16.0) g/dL Hct 35.7 L (37-47) % MCV 92.5 (80-100) fL MCH 31.3 (25-34) pg MCHC 33.9 (32-36) g/dL RDW Std Deviation 43.8 (36.4-46.3) fL RDW Coeff of Georges 12.9 (11.5-14.5) % Plt Count 282 (130-400) K/uL MPV 9.9 (7.4-10.4) fL Immature Gran % (Auto) 0.2 % Neut % (Auto) 44.9 % Lymph % (Auto) 42.2 % Darke % (Auto) 7.5 % Eos % (Auto) 4.3 % Baso % (Auto) 0.9 % Neut # (Auto) 2.08 (1.4-6.5) K/uL Lymph # (Auto) 1.96 (1.2-3.4) K/uL Darke # (Auto) 0.35 (0.11-0.59) K/uL Eos # (Auto) 0.20 (0-0.5) K/uL Baso # (Auto) 0.04 (0-0.2) K/uL Immature Gran # (Auto) 0.01 (0.00-0.02) K/uL PT 10.0 (9.0-12.0) Seconds INR 1.0 (0.9-1.1) Sodium 138 (136-145) mmol/L Potassium 4.4 (3.5-5.1) mmol/L Chloride 108 H (98-107) mmol/L Carbon Dioxide 27 (21-32) mmol/L Anion Gap 3.0 (3-11) BUN 17 (7-18) mg/dl Creatinine 0.79 (0.6-1.2) mg/dl Est Cr Clr Drug Dosing 94.6 ml/min Est GFR ( Amer) 93.6 Est GFR (Non-Af Amer) 80.8 BUN/Creatinine Ratio 21.4 H (10-20) Glucose 107 H (70-99) mg/dl Calcium 9.6 (8.5-10.1) mg/dl Total Bilirubin 0.4 (0.2-1) mg/dl AST 15 (15-37) U/L ALT 18 (12-78) U/L Alkaline Phosphatase 72 (45-117) U/L Total Protein 7.3 (6.4-8.2) gm/dl Albumin 3.8 (3.4-5.0) gm/dl Globulin 3.5 (2.5-4.0) gm/dl Albumin/Globulin Ratio 1.1 (0.9-2) COVID-19 Eval Order SARS-CoV-2 (PCR) (Negative) Influenza Type A (PCR) (Neg) Influenza Type B (PCR) (Neg) RSV (RT-PCR) (Neg) Blood Type Antibody Screen Crossmatch 10/09/20 10/09/20 10/09/20 Range/Units 13:04 13:22 13:22 WBC (4.8-10.8) K/uL RBC (4.2-5.4) M/uL Hgb (12.0-16.0) g/dL Hct (37-47) % MCV (80-100) fL MCH (25-34) pg MCHC (32-36) g/dL RDW Std Deviation (36.4-46.3) fL RDW Coeff of Georges (11.5-14.5) % Plt Count (130-400) K/uL MPV (7.4-10.4) fL Immature Gran % (Auto) % Neut % (Auto) % Lymph % (Auto) % Darke % (Auto) % Eos % (Auto) % Baso % (Auto) % Neut # (Auto) (1.4-6.5) K/uL Lymph # (Auto) (1.2-3.4) K/uL Darke # (Auto) (0.11-0.59) K/uL Eos # (Auto) (0-0.5) K/uL Baso # (Auto) (0-0.2) K/uL Immature Gran # (Auto) (0.00-0.02) K/uL PT (9.0-12.0) Seconds INR (0.9-1.1) Sodium (136-145) mmol/L Potassium (3.5-5.1) mmol/L Chloride (98-107) mmol/L Carbon Dioxide (21-32) mmol/L Anion Gap (3-11) BUN (7-18) mg/dl Creatinine (0.6-1.2) mg/dl Est Cr Clr Drug Dosing ml/min Est GFR ( Amer) Est GFR (Non-Af Amer) BUN/Creatinine Ratio (10-20) Glucose (70-99) mg/dl Calcium (8.5-10.1) mg/dl Total Bilirubin (0.2-1) mg/dl AST (15-37) U/L ALT (12-78) U/L Alkaline Phosphatase (45-117) U/L Total Protein (6.4-8.2) gm/dl Albumin (3.4-5.0) gm/dl Globulin (2.5-4.0) gm/dl Albumin/Globulin Ratio (0.9-2) COVID-19 Eval Order CovFluRsv at [facility] SARS-CoV-2 (PCR) NEGATIVE (Negative) Influenza Type A (PCR) Negative (Neg) Influenza Type B (PCR) Negative (Neg) RSV (RT-PCR) Negative (Neg) Blood Type A Positive Antibody Screen NEGATIVE Crossmatch See Detail Administered Medications Sodium Chloride (Nss 1000ml) 1,000 mls @ 80 mls/hr IV .[id number] VINNY Stop: 10/10/20 14:59 Last Admin: 10/09/20 16:01 Dose: 80 mls/hr Documented by: [id number] Discontinued Medications Ioversol (Ioversol 100ml) 93 ml IV ONCE ONE Stop: 10/09/20 16:14 Last Admin: 10/09/20 16:14 Dose: 93 ml Documented by: [id number] Imaging Data Radiologist's Impression: Abdomen/Pelvis CT 10/09/20 12:46 CT SCAN OF THE ABDOMEN AND PELVIS WITH IV CONTRAST CLINICAL HISTORY: Rectal bleeding. COMPARISON STUDY: Abdominal CT dated 07/30/2007. TECHNIQUE: Following the IV administration of 93 cc of Optiray 320, CT scan of the abdomen and pelvis is performed from the lung bases to the proximal femora. Images are reviewed in the axial, sagittal, and coronal planes. IV contrast was administered without complication. Oral contrast was utilized. A dose lowering technique was utilized adhering to the principles of ALARA. CT DOSE: 872.25 mGy.cm FINDINGS: Lung bases: The heart is normal in size and without pericardial effusion. The lung bases are clear noting dependent atelectasis. There is a small hiatal hernia. Liver: The contrast-enhanced liver is normal in size, contour, and attenuation. There is no intrahepatic biliary ductal dilatation. The hepatic veins and portal veins are patent. Gallbladder: Unremarkable. Spleen: Normal in size and attenuation. There is a 9 mm peripherally calcified splenic artery aneurysm seen on image #79. Pancreas: Unremarkable. Adrenal glands: Unremarkable. Kidneys: The contrast enhanced kidneys are normal in size and without hydronephrosis. The kidneys enhance symmetrically. Abdominal vasculature: The abdominal aorta is normal in course and caliber. Bowel: There is no bowel obstruction. Enteric contrast reaches the left colon. The appendix is not identified. Peritoneum: There is no intraperitoneal free air or abdominal ascites. Lymphadenopathy: None. Pelvic viscera: The bladder is normal as visualized. The uterus is surgically absent. No adnexal lesion is seen. Skeletal structures: No lytic or blastic lesions are seen. IMPRESSION: There are no acute infectious or inflammatory findings in the abdomen or pelvis. ACT 112: Negative or not required by law. Electronically signed by: Yvan Carmichael M.D. 10/09/2020 4:27 PM Discharge Plan Visit Data Chief Complaint: Rectal Bleed Stated Complaint: RECTAL BLEEDING ED Provider: Lisandro Braden Discharge Problem: Lower gastrointestinal hemorrhage Patient Disposition: Admitted As Inpatient Discharge Instructions Interventions: ED Discharge Assessment Last Done: 10/09/20 16:46
[2020-10-09 13:19] LABS: Basophils # (auto) 0.04 K/uL (0-0.2); Basophils % (auto) 0.9 %; Eosinophils % (auto) 4.3 %; Hematocrit (blood only) 35.7 % (37-47); Hemoglobin 12.1 g/dL (12.0-16.0); Immature Granulocytes # (auto) 0.01 K/uL (0.00-0.02); Immature Granulocytes % (auto) 0.2 %; Lymphocytes # (auto) 1.96 K/uL (1.2-3.4); Lymphocytes % (auto) 42.2 %; Mean Corpuscular Hemoglobin 31.3 pg (25-34); Mean Corpuscular Hgb Conc 33.9 g/dL (32-36); Mean Corpuscular Volume 92.5 fL (80-100); Mean Platelet Volume 9.9 fL (7.4-10.4); Monocytes # (auto) 0.35 K/uL (0.11-0.59); Monocytes % (auto) 7.5 %; Neutrophils # (auto) 2.08 K/uL (1.4-6.5); Neutrophils % (auto) 44.9 %; Platelet Count 282 K/uL (130-400); RDW Coefficient of Variation 12.9 % (11.5-14.5); RDW Standard Deviation 43.8 fL (36.4-46.3); Red Blood Count 3.86 M/uL (4.2-5.4); White Blood Count 4.64 K/uL (4.8-10.8)
[2020-10-09 13:37] LABS: Albumin Level 3.8 gm/dl (3.4-5.0); BUN Creatinine Ratio 21.4 (10-20); Calcium 9.6 mg/dl (8.5-10.1); Creatinine Clr Calc Pharmacy 94.6 ml/min; Est GFR (African American) 93.6; Est GFR (Non-African American) 80.8; Potassium 4.4 mmol/L (3.5-5.1)
[2020-10-09 13:40] LABS: Albumin Globulin Ratio 1.1 (0.9-2); Bilirubin,Total 0.4 mg/dl (0.2-1); Globulin 3.5 gm/dl (2.5-4.0); Total Protein 7.3 gm/dl (6.4-8.2)
--- NOTE | 2020-10-09 14:16 | History & Physical Report ---
Date of Service October 09, 2020 Assessment & Plan (1) Rectal bleeding: Pt is 60 y/o F with PMH Factor V Leiden, RLE DVT, on chronic Xarelto, asthma, anxiety presented to ER with c/o rectal bleeding. Pt reports intermittent rectal bleeding over the past several weeks. Started with bright red blood with BMs, past week having intermittent episodes bright red blood per rectum not associated with BM's. In ER afebrile, vitals stable. Did have episode of bright red blood per rectum while in ER. Initial H/H: (baseline Hgb ~12). Normal PT/INR. No leukocytosis -Repeat H&H this afternoon -Type & Cross and Hold PRBCs -Pending CT ABD/PELVIS -Clear fluids now, NPO midnight -Hold Xarelto -GI consult, saw pt in ER and recommend CT abd/pelvis. If Hgb drops or more episodes rectal bleeding may plan for inpatient colonoscopy -CBC, BMP in am (2) Factor V Leiden: (3) History of DVT of lower extremity: H/O RLE DVT 06/2020. On Chronic Xarelto -Hold Xarelto currently with rectal bleeding (4) Anxiety: -Continue buspirone, Effexor DVT Prophylaxis -SCDs for now Full Code as per discussion with pt Follows with Jia Baum PA-C for routine care Pt was seen and care coordinated with Dr Robertson. See addendum History of Present Illness Chief Complaint: Rectal bleeding Primary Care Provider: Jia Baum PA-C Pt is 60 y/o F with PMH Factor V Leiden, RLE DVT, on chronic Xarelto, asthma, anxiety presented to ER with c/o rectal bleeding. Pt reports intermittent rectal bleeding over the past several weeks. Started with bright red blood with BMs, past week having intermittent episodes bright red blood per rectum not associated with BM's. [facility] planned colonoscopy soon. Pt reports SOB for several months and is to follow up with pulmonology. Denies any acute worsening SOB. Denies CP, dizziness, syncope. Reports chronic epigastric discomfort which she relates to hiatal hernia. Intermittent indigestion, controlled with diet and OTC Tums. Has formed BM daily. Denies fever/chills, diaphoresis, N/V/D, GTZ, vision changes, neck pain, orthopnea, palpitations, cough, sore throat, choking, otalgia, rhinorrhea, paresthesias, weakness, extremity weakness, extremity edema, rashes, urinary symptoms. Allergies Allergy/AdvReac Type Severity Reaction Status Date / Time lidocaine Allergy Intermediate HIVES Unverified 10/09/20 13:46 bee venom protein (honey bee) Allergy Hives Unverified 10/09/20 13:46 tuberculin, purified protein Allergy Hives Unverified 10/09/20 13:49 deriva Home Medications Medication Instructions Recorded Confirmed Type albuterol sulfate 2 inh INHALATION Q4H PRN 10/09/20 10/09/20 History buspirone 10 mg PO BID 10/09/20 10/09/20 History cyanocobalamin-cobamamide [B12] 1 jonathan SUBLINGUAL DAILY 10/09/20 10/09/20 History ergocalciferol (vitamin D2) 10 mcg PO DAILY 10/09/20 10/09/20 History [Vitamin D2] lactobacillus combination no.4 3,000 mmu cells PO DAILY 10/09/20 10/09/20 History [Probiotic] omega 9-jdt-mug-fish oil [Fish Oil] 1 cap PO DAILY 10/09/20 10/09/20 History rivaroxaban [Xarelto] 10 mg PO HS 10/09/20 10/09/20 History sumatriptan succinate 50 mg PO DIRECTED PRN 10/09/20 10/09/20 History venlafaxine [Effexor XR] 150 mg PO DAILY 10/09/20 10/09/20 History zinc oxide-zinc citrate 50 mg PO DAILY 10/09/20 10/09/20 History Past Med/Surg History Medical History Anxiety Asthma Factor V Leiden History of DVT of lower extremity Migraines Surgical History History of appendectomy History of hysterectomy Family History Father Lung cancer Heart disease Daughter Asthma Social History Smoking Status: Never smoker Hx Alcohol Use: No Hx Substance Use: No marital status: Current Living Situation: Spouse current occupational status: employed Feels Safe at Home: Yes Review of Systems Review of Systems: All systems reviewed & are unremarkable except as noted in HPI & below Physical Exam Physical Exam: General: no distress, overweight Head: normocephalic, atraumatic Eyes: conjunctiva non-injected, anicteric ENT: normal inspection external ears, nose, mucous membranes moist Neck: supple, trachea midline Lungs: clear, no respiratory distress, no wheezing/rhonchi/rales CV: RRR, no murmur,no pretibial edema Abd: normal BS, soft, mild tenderness to epigastric region without rebound, otherwise abdomen non-tender Ext: no cyanosis, no calf tenderness Neuro: A&O x 3, no focal deficits noted, normal affect Skin: warm, dry Results & Data Results & Data ([facility]) Vital Signs (Past 12 Hours) Vital Signs Temp Pulse Resp BP Pulse Ox 10/09/20 12:04 36.7 C 78 18 139/74 97 Laboratory Results Short CBC 10/09/20 Range/Units 13:04 WBC 4.64 L (4.8-10.8) K/uL Hgb 12.1 (12.0-16.0) g/dL Hct 35.7 L (37-47) % Plt Count 282 (130-400) K/uL BMP 10/09/20 13:04 Sodium 138 Potassium 4.4 Chloride 108 H Carbon Dioxide 27 BUN 17 Creatinine 0.79 Glucose 107 H Calcium 9.6 Liver Function 10/09/20 Range/Units 13:04 Total Bilirubin 0.4 (0.2-1) mg/dl AST 15 (15-37) U/L ALT 18 (12-78) U/L Alkaline Phosphatase 72 (45-117) U/L Albumin 3.8 (3.4-5.0) gm/dl Code Status & VTE Plan VTE Prophylaxis Plan VTE Prophylaxis will be ordered: Yes Supervising Physician Co-Signing Physician Notes Acute blood loss anemia Acute abdominal pain Patient is doing okay. Has been having bright red blood per rectum over a week or so. Hemoglobin at 12 on admission. GI has been consulted. CT abdomen/pelvis is pending. To be started on clear liquid diet followed by n.p.o. except meds after midnight for colonoscopy tomorrow. Continue to trend CBC. Continue to hold Xarelto. I performed a history and physical examination of the patient on 10/09/20, including specifically H&P. I have discussed the patient's management with the advanced practitioner. Please refer to the [facility] note for the documented findings and plan of care.
[2020-10-09 15:17] LABS: Influenza A virus by PCR Negative (Neg); Influenza B virus by PCR Negative (Neg); RSV by PCR Negative (Neg); SARS CoV2 RNA(COVID-19) InHosp NEGATIVE (Negative)
[2020-10-09] MEDS: SODIUM CHLORIDE 0.9% 1000ML 1,000 ML IV SCH (16:01)
[2020-10-09] MEDS ORDERED: OPTIRAY 320 100ml IV ONE (16:13)
--- NOTE | 2020-10-09 16:28 | CT Scan Report ---
CT SCAN OF THE ABDOMEN AND PELVIS WITH IV CONTRAST CLINICAL HISTORY: Rectal bleeding. COMPARISON STUDY: Abdominal CT dated 07/30/2007. TECHNIQUE: Following the IV administration of 93 cc of Optiray 320, CT scan of the abdomen and pelvi s is performed from the lung bases to the proximal femora. Images are reviewed in the axial, sagittal , and coronal planes. IV contrast was administered without complication. Oral contrast was utilized. A dose lowering technique was utilized adhering to the principles of ALARA. CT DOSE: 872.25 mGy.cm FINDINGS: Lung bases: The heart is normal in size and without pericardial effusion. The lung bases are clear no ting dependent atelectasis. There is a small hiatal hernia. Liver: The contrast-enhanced liver is normal in size, contour, and attenuation. There is no intrahepa tic biliary ductal dilatation. The hepatic veins and portal veins are patent. Gallbladder: Unremarkable. Spleen: Normal in size and attenuation. There is a 9 mm peripherally calcified splenic artery aneurys m seen on image #79. Pancreas: Unremarkable. Adrenal glands: Unremarkable. Kidneys: The contrast enhanced kidneys are normal in size and without hydronephrosis. The kidneys enh ance symmetrically. Abdominal vasculature: The abdominal aorta is normal in course and caliber. Bowel: There is no bowel obstruction. Enteric contrast reaches the left colon. The appendix is not i dentified. Peritoneum: There is no intraperitoneal free air or abdominal ascites. Lymphadenopathy: None. Pelvic viscera: The bladder is normal as visualized. The uterus is surgically absent. No adnexal lesi on is seen. Skeletal structures: No lytic or blastic lesions are seen. IMPRESSION: There are no acute infectious or inflammatory findings in the abdomen or pelvis. ACT 112: Negative or not required by law. Electronically signed by: Yvan Carmichael M.D. 10/09/2020 4:27 PM
[2020-10-09 17:47] LABS: Hematocrit (blood only) 34.7 % (37-47); Hemoglobin 11.8 g/dL (12.0-16.0)
[2020-10-09] MEDS ORDERED: ACETAMINOPHEN 325 MG TAB PO PRN (18:19)
[2020-10-09] MEDS ORDERED: ONDANSETRON INJ 2 MG/ML 2 ML VIAL IV PRN (18:19)
[2020-10-09] MEDS ORDERED: SODIUM CHLORIDE 0.9% 250 ML IV PRN (18:19)
[2020-10-09] MEDS ORDERED: ALBUTEROL HFA 8 GM INHALER INH PRN (18:19)
[2020-10-09] MEDS: busPIRone 5 MG TAB PO SCH (21:01)
[2020-10-09 23:04] LABS: Hematocrit (blood only) 33.1 % (37-47); Hemoglobin 11.6 g/dL (12.0-16.0)
[2020-10-10] MEDS: SODIUM CHLORIDE 0.9% 1000ML 1,000 ML IV SCH (05:43)
[2020-10-10 08:16] LABS: Hematocrit (blood only) 34.2 % (37-47); Hemoglobin 11.5 g/dL (12.0-16.0); Mean Corpuscular Hemoglobin 31.2 pg (25-34); Mean Corpuscular Hgb Conc 33.6 g/dL (32-36); Mean Corpuscular Volume 92.7 fL (80-100); Platelet Count 243 K/uL (130-400); RDW Coefficient of Variation 12.9 % (11.5-14.5); RDW Standard Deviation 43.8 fL (36.4-46.3); Red Blood Count 3.69 M/uL (4.2-5.4); White Blood Count 3.57 K/uL (4.8-10.8)
[2020-10-10] MEDS: busPIRone 5 MG TAB PO SCH (08:39)
--- NOTE | 2020-10-10 08:39 | Gastroenterology Progress Note ---
Date of Service October 10, 2020 Assessment & Plan (1) Abdominal pain: (2) Rectal bleeding: Pt is a 60 y/o female w hx of Factor V Leiden Mutation on Xarelto, followed for worsening rectal bleeding associated w mid abd discomfort, and weakness. CT abd/pelvis unremarkable. Blood ct stable. She denies any rectal bleeding overnight, no n/v either. - Regular diet - Stable for DC home from GI standpoint and resume Xarelto - Keep originally scheduled outpt colonoscopy on 10/17/2020 Admission and Anticipated Discharge Date Admission Date: October 09, 2020 Supervising Physician Co-Signing Physician Notes I have discussed the mgmt with THELMA Schaefer and agree with her exam and assessment and plan. Subjective Pt denies any more rectal bleeding since admitted. No n/v, slight TTP on upper abd area. Blood ct stable Review of Systems Review of Systems: All systems reviewed & are unremarkable except as noted in HPI & below Physical Exam Constitutional: WD/WN, vitals as above well groomed, cooperative and comfortable Eyes: PERRL, conjunctivae normal, anicteric sclerae ENMT: external ear and nose normal, oropharynx normal Respiratory: normal respiratory effort, lungs clear to auscultation Cardiovascular: RRR, no murmur, no edema Gastrointestinal (Abdomen): Inspection/Auscultation: + hypoactive bowel sounds Percussion/Palpation: + abdomen tender (slight TTP epigastric ) and abdomen soft Skin: no rashes, warm and dry no jaundice Psychiatric: A+Ox3, euthymic affect Lymphatic: no lymphedema Results & Data ([facility]) Vital Signs (Past 12 Hours) Vital Signs Temp Pulse Pulse Resp BP Pulse Ox 10/10/20 07:25 66 10/10/20 06:53 36.5 C 82 18 116/67 92 10/10/20 03:18 36.5 C 71 18 122/64 95 10/10/20 00:33 72 10/09/20 23:12 36.5 C 84 18 115/71 96
[2020-10-10 08:53] LABS: Est GFR (African American) 99.7; Potassium 3.9 mmol/L (3.5-5.1)
[2020-10-10 08:54] LABS: BUN Creatinine Ratio 14.1 (10-20); Calcium 8.8 mg/dl (8.5-10.1); Creatinine Clr Calc Pharmacy 95.7 ml/min
[2020-10-10] MEDS ORDERED: VENLAFAXINE HCL XR 150 MG CAPXR PO SCH (09:00)
--- NOTE | 2020-10-10 10:00 | Discharge Summary ---
Date of Service October 10, 2020 Admission HPI Per Admitting Provider Pt is 60 y/o F with PMH Factor V Leiden, RLE DVT, on chronic Xarelto, asthma, anxiety presented to ER with c/o rectal bleeding. Pt reports intermittent rectal bleeding over the past several weeks. Started with bright red blood with BMs, past week having intermittent episodes bright red blood per rectum not associated with BM's. [facility] planned colonoscopy soon. Pt reports SOB for several months and is to follow up with pulmonology. Denies any acute worsening SOB. Denies CP, dizziness, syncope. Reports chronic epigastric discomfort which she relates to hiatal hernia. Intermittent indigestion, controlled with diet and OTC Tums. Has formed BM daily. Denies fever/chills, diaphoresis, N/V/D, GTZ, vision changes, neck pain, orthopnea, palpitations, cough, sore throat, choking, otalgia, rhinorrhea, paresthesias, weakness, extremity weakness, extremity edema, rashes, urinary symptoms. Admission Exam Per Admitting Provider General: no distress, overweight Head: normocephalic, atraumatic Eyes: conjunctiva non-injected, anicteric ENT: normal inspection external ears, nose, mucous membranes moist Neck: supple, trachea midline Lungs: clear, no respiratory distress, no wheezing/rhonchi/rales CV: RRR, no murmur,no pretibial edema Abd: normal BS, soft, mild tenderness to epigastric region without rebound, otherwise abdomen non-tender Ext: no cyanosis, no calf tenderness Neuro: A&O x 3, no focal deficits noted, normal affect Skin: warm, dry Principal Diagnosis Acute gastrointestinal bleeding Discharge Exam General: A&Ox3 HENT: NCAT, MMM, EOMI Eyes: PERRLA Neck: Supple, normal range of motion CVS: normal rate and rhythm Resp: b/l good breath sounds Abdomen: Soft, tenderness improved Extremities: No c/c/e Neuro: face symmetric, strength grossly equal, no focal deficit Skin: warm and dry, no rashes/lesions/errythema MSK: normal ROM, no joint swelling/erythema Discharge Data Allergies Allergy/AdvReac Type Severity Reaction Status Date / Time lidocaine Allergy Intermediate HIVES Unverified 10/09/20 13:46 bee venom protein (honey bee) Allergy Hives Unverified 10/09/20 13:46 tuberculin, purified protein Allergy Hives Unverified 10/09/20 13:49 deriva Consultations 10/09/20 13:59 ED Decision to Admit Stat 10/09/20 18:19 Consult Gastroenterology Routine Ordered Studies 10/09/20 12:46 CT abd pelvis oral and IV con Stat Hospital Course (1) Rectal bleeding: Pt is 60 y/o F with PMH Factor V Leiden, RLE DVT, on chronic Xarelto, asthma, anxiety presented to ER with c/o rectal bleeding. Pt reports intermittent rectal bleeding over the past several weeks. Started with bright red blood with BMs, past week having intermittent episodes bright red blood per rectum not associated with BM's. Abdomen/pelvis was obtained which did not reveal any concerning findings. Gastroenterology was consulted. Hemoglobin remained stable during this hospitalization. Oncology recommended to restart Xarelto and discharge patient home and follow-up as an outpatient for colonoscopy which is scheduled for next week. Patient was stable for any major complaints. Remained stable no further episodes of bleeding. She was discharged in stable condition. (2) Factor V Leiden: (3) History of DVT of lower extremity: H/O RLE DVT 06/2020. On Chronic Xarelto (4) Anxiety: -Continue buspirone, Effexor Total Time Total Time Spent Total Time Spent (In Minutes): 35 Discharge Plan Discharge Items Patient Disposition: Home - Self-Care Reason For Visit: GI BLEED Discharge Diagnosis: Gastrointestinal bleeding Activity: Resume your previous activity Non-emergency contact: Primary Care Provider Call non-emergency contact if: your symptoms worsen Follow-up/Referrals: Jia Baum PA-C [Primary Care Provider] - Diet: Heart Healthy Addtl Attending Provider Instructions: Follow-up with your primary care physician. An appointment has been requested. Pending Studies at Discharge: No Stand-Alone Forms: [employer], Smoking Cessation Medications and DC Order Prescriptions: Continued ergocalciferol (vitamin D2) 10 mcg (400 unit) Tablet 10 mcg PO DAILY RF: 0 venlafaxine [Effexor XR] 150 mg Capsule,Extended Release 24hr 150 mg PO DAILY RF: 0 buspirone 10 mg Tablet 10 mg PO BID RF: 0 omega 2-ufa-pjw-fish oil [Fish Oil] 1,200 (144-216) mg Capsule 1 cap PO DAILY RF: 0 B12 5,000-100 mcg Lozenge 1 jonathan SUBLINGUAL DAILY RF: 0 Xarelto 10 mg tablet 10 mg PO HS RF: 0 Probiotic 3 billion cell Capsule 3,000 mmu cells PO DAILY RF: 0 zinc oxide-zinc citrate 50 mg Tablet 50 mg PO DAILY RF: 0 sumatriptan succinate 50 mg tablet 50 mg PO DIRECTED PRN (Reason: Headache) RF: 0 albuterol sulfate 90 mcg/actuation HFA aerosol inhaler 2 inh INHALATION Q4H PRN (Reason: Shortness Of Breath Or Wheezing) RF: 0 Discharge Orders: Discharge Order (Routine); Ordered 10/10/20 Ordered By: Stephany Robertson Admission Data Admit Date/Time: 10/09/20 13:58 Attending Provider: Stephany Robertson Admit Provider: Stephany Robertson Primary Care Provider: Jia Baum Other Providers: Stephany Robertson ; Hayley Alva Other Interventions: Discharge Summary Assessment (RN) Last Done: 10/10/20 09:54
== END 2020-10-10 10:27 | disposition home or self-care (01) | DRG 378 ==
LOC: ED 11:53 → 2W 13:58